=== PATIENT | female | born 1935 | race Caucasian/White ===

== ENCOUNTER → 2016-09-18 | Day surgery (SDC) | payer MEDICARE ==
[~2016-09-18] MED LIST: ACET-703 PO; ASPI81TA81 PO; BUPIVACAINE HCL PF 0.75% 30 ML VIAL ONE; CHOL1TAB42 PO; DIPH1TAB36 PO; LATA0.002 EACH EYE; LEXA10TA PO; PROB1TAB; PROPOFOL 200 MG/20 ML AMP IV ONE; RANI300T PO; ROSU10 PO; SYSTSOL EACH EYE; TIMO0.5S30 EACH EYE; TRIAMCINOLONE ACETONIDE 40 MG/ML VIAL I-ARTICULR ONE; VITA500T49 PO
--- NOTE | 2016-09-20 06:45 | M6 ---
cc: MARIANN JOHNSTON M.D. DATE: 09/18/2016. DATE OF : 1935 PROCEDURE Fluoroscopically guided injection bilateral lumbar facet joints (bilateral L3-4, L4-5 and L5-S1 facet joints). History and physical was completed and signed. Consent was signed. Procedure site was marked. Medications were listed and reconciled. Pain score was recorded. Allergies were noted. Time out was taken. Fluoroscopy time was recorded where applicable. Sedation was administered or directed by Dr. Johnston. The patient was given oxygen. The patient was monitored by a registered nurse. Total procedure time was greater than 15 minutes. PROCEDURE NOTE: IV was started, blood pressure cuff, pulse oximeter and EKG were applied. The patient was placed in the prone position on a Erwin table sedated with small amounts of propofol titrated to effect. Vital signs were monitored and remained stable throughout the procedure. The lumbar area was prepped with alcohol and 10% Betadine solution, draped with sterile drapes. Fluoroscopy was used in a Ad dog view to clearly visualize the bilateral lumbar facet joints at L3-4, L4-5 and L5-S1. Separate sterile 3-1/2 inch 25-gauge spinal needles were advanced into these joints under fluoroscopic guidance. There was negative aspiration for blood or any other type of fluid and the at each location the patient was given 1 mL of Marcaine 0.75% which contained 10 mg of Kenalog. Following the procedure the patient was taken to the recovery room with stable vital signs neurologically intact. WMD ANURAG Perales/OLENA /8:42 AM /6:40 AM
== END | disposition home or self-care (01) ==
LOC: PHSDC 07:14
PROVIDERS: ATTEND Pain Medicine Interventional Pain Medicine
DX: M54.5 Low back pain (principal)
CPT/HCPCS: 64493; 64494; 64495; 99152; J3301

== ENCOUNTER → 2017-02-10 | Day surgery (SDC) | payer MEDICARE ==
[~2017-02-10] MED LIST changes: -ACET-703 PO; +ACET-822 PO; +DIPH0.052 PO; -DIPH1TAB36 PO; -VITA500T49 PO
--- NOTE | 2017-02-13 14:38 | M6 ---
cc: NICKOLAS VERDIN M.D., WILLIAM R. M.D. DATE: 02/10/2017 DATE OF : 1935. PROCEDURE Fluoroscopically guided injection bilateral lumbar facet joints. PRE-PROCEDURE NOTE I originally saw Ms. Valdez in July 2016 with low back pain. I thought this was facet joint arthropathy, in August we injected her bilateral lumbar facet joints. The patient reported 90-95% relief of her usual back pain for many months until just 2-3 weeks ago she began having a return of her back pain so today we are repeating the bilateral lumbar facet joint injections after which we will carefully evaluate the patient. In the future we can either repeat these injections or consider radiofrequency ablation in an attempt to obtain more prolonged relief. History and physical was completed and signed. Consent was signed. Procedure site was marked. Medications were listed and reconciled. Pain score was recorded. Allergies were noted. Time out was taken. Fluoroscopy time was recorded where applicable. Sedation was administered or directed by Dr. Johnston. The patient was given oxygen. The patient was monitored by a registered nurse. Total procedure time was greater than 15 minutes. IV was started, blood pressure cuff, pulse oximeter and EKG were applied. The patient was placed in the prone position on a Erwin table sedated with small amounts of propofol titrated to effect. Vital signs were monitored and remained stable throughout the procedure lumbar area was prepped with alcohol and 10% Betadine solution and draped with sterile drapes. Fluoroscopy was used in a Ad dog view to clearly visualize the bilateral lumbar facet joints at L3-4, L4-5 and L5-S1. Separate sterile 3-1/2-inch 25-gauge spinal needles were advanced into these joints under fluoroscopic guidance. There was negative aspiration for blood or any other type of fluid at each location the patient was given 1 mL of Marcaine 0.75% which contained 10 mg of Kenalog. Following the procedure the patient was taken to the recovery room with stable vital signs neurologically intact. She will be evaluated immediately and with followup to determine if she has a subjective decrease her usual pain and a corresponding objective increase her functional capabilities. W. MD ANURAG Bhatia/andreia /8:24 AM /2:38 PM
== END | disposition home or self-care (01) ==
LOC: PHSDC 07:00
PROVIDERS: ATTEND Pain Medicine Interventional Pain Medicine
DX: M54.5 Low back pain (principal)
CPT/HCPCS: 64493; 64494; 64495; 99152; J3301